=== PATIENT | female | born 1975 | race Caucasian/White ===

== ENCOUNTER 2018-12-17 07:57 | Day surgery (SDC) | payer OTHER ==
[~2018-12-17] VITALS: Ht 165.1 cm; Wt 87.6 kg
[~2018-12-17 07:57] MED LIST: ALBU90OI INH; ALBU90OI61 INH; AZIT250 PO; Augmentin 875-1 EACH PO; BENZ100A PO; BUSP10 PO; CEPH500 PO; CLIN300 PO; CODGUAEL PO; CYCL10; CYCL10 PO; Flonase 0.05% N16 GM; GUAI100SY PO; HYDACE5 PO; IBUP600 PO; IBUP800 PO; Imitrex50 MG PO; MECL25 PO; NAPR500 PO; Naprosyn500 MG PO; OMEP20ER PO; ONDA4 PO; OXYACE5T PO; OXYACE7.5T PO; PRED20 PO; PROM25 PO; PSEU120ER PO; PSEU30 PO; Percocet 5-3251 EACH PO; Prednisone20 MG PO; Prilosec Otc20 MG; RXOXYACE PO; SULTRIDS PO; SULTRISS PO; TRAM50 PO
[2018-12-17] MEDS ORDERED: ATEN25 (08:28)
--- NOTE | 2018-12-17 10:40 | NUR ---
12/17/18 1040 Dawna Nix PT GIVEN 0.5 MG LORAZEPAM PER ORDER (SEE VITALS FOR TIMES) PER ORDER. PT IN RECLINER WITH FAMILY AT CHAIR SIDE. PT STATES SHE "FEELS LIKE SHE IS CALMING DOWN NOW." VSS. CALL LIGHT WITHIN REACH.
== END 2018-12-17 11:35 | disposition home or self-care (01) ==
LOC: ORSCSDS 07:57
PROVIDERS: Orthopaedic Surgery
PROC: 01N50ZZ Release Median Nerve, Open Approach (ICD-10-PCS; principal; 2018-12-17 09:15)
PROC: 0RQT0ZZ Repair Left Carpometacarpal Joint, Open Approach (ICD-10-PCS; principal; 2018-12-17 09:15)
PROC: 0LX80ZZ Transfer Left Hand Tendon, Open Approach (ICD-10-PCS; principal; 2018-12-17 09:15)
DX: M18.12 Unilateral primary osteoarthritis of first carpometacarpal joint, left hand (principal); G56.02 Carpal tunnel syndrome, left upper limb; E03.9 Hypothyroidism, unspecified; Z79.899 Other long term (current) drug therapy; Z87.891 Personal history of nicotine dependence
CPT/HCPCS: A9270-GY; C1713; J0690; J1100; J1885; J2060; J2250; J2405; J2704; J3010